=== PATIENT | male | born 1985 | race Caucasian/White ===

== ENCOUNTER 2018-06-20 07:46 | Observation (INO) ==
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
[2018-06-20 08:31] LABS: Basophils % 0.3 %; Hematocrit 38.9 % (37.5-50.1); Immature Granulocytes % 0.2 % (0-4); Lymphocytes # 2.1 K/mcL (0.6-4.6); Lymphocytes % 22.7 %; Mean Corpuscular HGB Conc 33.4 g/dL (31.6-35.5); Mean Corpuscular Hemoglobin 30.3 pg (28.0-33.3); Mean Corpuscular Volume 90.7 fL (83.0-100.0); Mean Platelet Volume 9.4 fL (9.4-12.4); Monocytes # 0.9 K/mcL (0.0-1.3); Monocytes % 9.2 %; Neutrophils # 6.3 K/mcL (1.6-8.9); Platelet Count 243 K/mcL (140-400); Red Blood Count 4.29 M/mcL (4.19-5.50); Red Cell Distribution Width 13.5 % (11.5-14.5); Segmented Neutrophils % 67.6 %
[2018-06-20 08:37] LABS: Bilirubin,Urine Moderate (Negative); Blood,Urine Negative (Negative); Clarity,Urine Clear (Clear); Color,Urine Dark Yellow (Yellow); Glucose,Urine (UA) Normal (Normal); Ketones,Urine 15 mg/dL (Negative); Leukocyte Esterase,Urine Negative (Negative); Nitrite,Urine Negative (Negative); Protein,Urine 30 mg/dL (Neg-Trace); Urobilinogen,Urine Normal (Normal)
[2018-06-20 08:39] LABS: Bacteria,Urine None Seen per hpf (None-Few); Squamous Epithelial Cell,Urine Many per lpf (None-Few)
[2018-06-20 08:40] LABS: Acetaminophen < 10 mcg/mL (10-20); BUN/Creatinine Ratio 23 (6-26); Blood Urea Nitrogen 44 mg/dL (6-20); Calcium 9.7 mg/dL (8.6-10.3); Carbon Dioxide 20 mEq/L (23-29); Chloride 102 mEq/L (98-107); Ethanol < 10 mg/dL (Less than 10); Glucose 77 mg/dL (70-105); Osmolality,Calculated 302 (280-300); Potassium 3.6 mEq/L (3.5-5.1); Salicylate < 2.5 mg/dL (15.0-30.0); Sodium 141 mEq/L (136-145); eGFR For Non-African Americans 41 (> 60)
[2018-06-20 08:56] LABS: Hyaline Casts,Urine Moderate per lpf (None-Few)
[2018-06-20] MEDS ORDERED: 0.9 % Sodium Chloride 1,000 ML ONE (08:58)
[2018-06-20 09:16] LABS: Amphetamine Screen,Urine Positive ng/mL (Cutoff=1000); Barbiturate Screen,Urine Negative ng/mL (Cutoff=200); Benzodiazepines Screen,Urine Positive ng/mL (Cutoff=200); Cannabinoid Screen,Urine Negative ng/mL (Cutoff = 50); Cocaine Screen,Urine Negative ng/mL (Cutoff= 300); Opiate Screen,Urine Negative ng/mL (Cutoff=300); Phencyclidine Screen,Urine Negative ng/mL (Cutoff=25)
[2018-06-20] MEDS: 0.9 % Sodium Chloride 1,000 ML IVC SCH ×2 (09:16→13:52)
[2018-06-20 09:25] LABS: Creatine Kinase 1730 Units/L (30-223)
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
[2018-06-20] MEDS ORDERED: 0.9 % Sodium Chloride 1,000 ML IVC ONE (09:43)
[2018-06-20] MEDS ORDERED: Acetaminophen 325 MG TABLET PO PRN (09:55)
[2018-06-20] MEDS ORDERED: Naloxone 0.4 MG/ML INJ IVP PRN (09:55)
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
[2018-06-20] MEDS ORDERED: hydrOXYzine pamoate 25 MG CAPSULE PO PRN (09:56)
[2018-06-20] MEDS ORDERED: Ringers Solution, Lactated 1,000 ML IVC SCH (10:00)
[2018-06-20 10:32] VITALS: BP 109/75
[2018-06-20] MEDS: Gabapentin 300 MG CAPSULE PO SCH ×2 (11:28→12:31)
[2018-06-20] MEDS: Divalproex (12 HR) 500 MG TABLET PO SCH ×2 (11:29→12:31)
[2018-06-20] MEDS ORDERED: Haloperidol Lactate 5 MG/ML VIAL ONE (11:42)
[2018-06-20] MEDS ORDERED: Ziprasidone injection 20 MG/ML VIAL IM ONE (11:47)
[2018-06-20] MEDS ORDERED: chlorproMAZINE 25 MG TABLET PO SCH (15:00)
--- NOTE | 2018-06-20 15:45 | Event Note ---
Date of Encounter: 06/20/18 Time of Encounter: 14:10 Patient left the hospital AMA after psychiatry cleared him and lifted the pink slip. He understands his condition and risks of not receiving appropriate treatment and has signed the necessary paperwork.
[2018-06-20] MEDS ORDERED: Mirtazapine 15 MG TABLET PO SCH (21:00)
[2018-06-20] MEDS ORDERED: traZODone 50 MG TABLET PO SCH (21:00)
[2018-06-20] MEDS ORDERED: BUPRENORPHINE HCL SL SCH (21:00)
[2018-06-20] MEDS ORDERED: NALOXONE HCL SL SCH (21:00)
[2018-06-20] MEDS ORDERED: Divalproex (12 HR) 500 MG TABLET PO SCH (21:00)
[2018-06-21] MEDS ORDERED: Polyethylene Glycol 3350 255 GM POWDER PO SCH (09:00)
[2018-06-21] MEDS ORDERED: Cholecalciferol (D-3) 1,000 UNIT TABLET PO SCH (09:00)
[2018-06-21] MEDS ORDERED: Loratadine 10 MG TABLET PO SCH (09:00)
== END 2018-06-20 14:16 | disposition left against medical advice (07) ==
LOC: EMEROOARM 07:46 → 2ANU 09:48 → INTOOBSV 09:48 → 2ANU 10:53
PROVIDERS: ADMIT Internal Medicine; ATTEND Internal Medicine

== ENCOUNTER 2022-06-03 19:41 | Observation (INO) ==
[2022-06-03 20:55] LABS: Basophils # 0.1 K/mcL (0.0-0.2); Basophils % 0.4 %; Eosinophils % 0.3 %; Hematocrit 46.7 % (37.5-50.1); Hemoglobin 15.3 g/dL (12.9-16.9); Immature Granulocytes % 0.3 % (0-4); Lymphocytes # 3.1 K/mcL (0.6-4.6); Lymphocytes % 25.9 %; Mean Corpuscular HGB Conc 32.8 g/dL (31.6-35.5); Mean Corpuscular Hemoglobin 29.1 pg (28.0-33.3); Mean Corpuscular Volume 88.8 fL (83.0-100.0); Mean Platelet Volume 10.1 fL (9.4-12.4); Monocytes % 8.5 %; Neutrophils # 7.7 K/mcL (1.6-8.9); Platelet Count 237 K/mcL (140-400); Red Blood Count 5.26 M/mcL (4.19-5.50); Segmented Neutrophils % 64.6 %; White Blood Count 11.9 K/mcL (4.3-11.1)
[2022-06-03 21:02] LABS: Prothrombin Time 11.5 Seconds (9.4-12.1)
[2022-06-03 21:04] LABS: Activated Partial Thrombo Time 32.3 Seconds (26.0-36.0)
[2022-06-03 21:11] LABS: Acetaminophen < 10 mcg/mL (10-20); Alanine Aminotransferase 21 Units/L (7-52); Albumin 4.7 g/dL (3.5-5.7); Albumin/Globulin Ratio 1.7 (1.1-2.2); Alkaline Phosphatase 58 Units/L (34-104); Aspartate Amino Transferase 23 Units/L (13-39); BUN/Creatinine Ratio 11 (6-26); Bilirubin,Direct 0.1 mg/dL (0.0-0.2); Bilirubin,Indirect 0.5 mg/dL (0.0-1.0); Bilirubin,Total 0.6 mg/dL (0.3-1.0); Blood Urea Nitrogen 13 mg/dL (6-20); Calcium 9.4 mg/dL (8.6-10.3); Carbon Dioxide 25 mEq/L (23-29); Chloride 109 mEq/L (98-107); Ethanol < 10 mg/dL (Less than 10); Globulin 2.7 g/dL (2.4-3.5); Glucose 116 mg/dL (70-105); Osmolality,Calculated 299 (280-300); Potassium 2.9 mEq/L (3.5-5.1); Salicylate < 2.5 mg/dL (15.0-30.0); Sodium 144 mEq/L (136-145); Total Protein 7.4 g/dL (6.4-8.9); Troponin I < 0.03 ng/mL (< 0.04); eGFR For African Americans > 60 (> 60); eGFR For Non-African Americans > 60 (> 60)
[2022-06-03] MEDS ORDERED: Potassium Effervescent 25 MEQ TABLET.EFF PO ONE (21:22)
[2022-06-03] MEDS ORDERED: *HR* LORazepam 2 MG/ML VIAL IVP ONE (21:25)
[2022-06-03 22:06] LABS: Bacteria,Urine Few per hpf (None-Few); Bilirubin,Urine Negative (Negative); Blood,Urine Negative (Negative); Clarity,Urine Clear (Clear); Color,Urine Yellow (Yellow); Glucose,Urine (UA) Normal (Normal); Ketones,Urine Trace mg/dL (Negative); Leukocyte Esterase,Urine Negative (Negative); Mucus,Urine Few per lpf (None-Few); Nitrite,Urine Negative (Negative); Protein,Urine 30 mg/dL (Neg-Trace); RBC,Urine 0-3 per hpf (0-3); Specific Gravity,Urine 1.026 (1.010-1.025); Squamous Epithelial Cell,Urine Few per hpf (None-Few); Urobilinogen,Urine Normal (Normal); WBC,Urine 0-3 per hpf (0-3)
[2022-06-03 22:09] LABS: Magnesium 1.8 mg/dL (1.6-2.6)
[2022-06-03 22:17] LABS: Amphetamine Screen,Urine Negative ng/mL (Cutoff=1000); Barbiturate Screen,Urine Negative ng/mL (Cutoff=200); Benzodiazepines Screen,Urine Positive ng/mL (Cutoff=200); Cannabinoid Screen,Urine Negative ng/mL (Cutoff = 50); Cocaine Screen,Urine Negative ng/mL (Cutoff= 300); Opiate Screen,Urine Negative ng/mL (Cutoff=300); Phencyclidine Screen,Urine Negative ng/mL (Cutoff=25)
[2022-06-03 22:46] LABS: Influenza A PCR Negative (Negative); Influenza B PCR Negative (Negative); Resp. Syncytial Virus PCR Negative (Negative)
[2022-06-03 22:48] LABS: SARS-CoV-2 by PCR (In House) Negative (Negative)
[2022-06-03] MEDS ORDERED: Acetaminophen 325 MG TABLET PO PRN (23:35)
[2022-06-03] MEDS ORDERED: Ondansetron 4 MG/2 ML VIAL IVP PRN (23:35)
[2022-06-03] MEDS ORDERED: Naloxone 0.4 MG/ML INJ IVP PRN (23:35)
[2022-06-03] MEDS ORDERED: Melatonin 3 MG TABLET PO PRN (23:35)
[2022-06-03 23:43] VITALS: BP 104/66; PULSE 56; TEMP 98; O2SAT 100
[2022-06-04] MEDS ORDERED: *HR* LORazepam 2 MG/ML VIAL ONE (00:42)
[2022-06-04] MEDS ORDERED: *HR* LORazepam 2 MG/ML VIAL IM ONE (01:15)
[2022-06-04 02:05] LABS: Valproate 10 mcg/mL (50-100)
[2022-06-04] MEDS ORDERED: *HR* LORazepam 2 MG/ML VIAL IM STA (03:27)
[2022-06-04] MEDS ORDERED: Nicotine 21 MG PATCH.TD24 TD PRN (06:18)
[2022-06-04] MEDS ORDERED: Haloperidol Lactate 5 MG/ML VIAL IVP PRN (07:53)
[2022-06-04] MEDS ORDERED: clonazePAM 0.5 MG TABLET PO SCH (11:30)
[2022-06-04] MEDS ORDERED: Haloperidol Lactate 5 MG/ML VIAL IM PRN (12:44)
[2022-06-04] MEDS ORDERED: Gabapentin 300 MG CAPSULE PO SCH (15:00)
[2022-06-04] MEDS ORDERED: levETIRAcetam 250 MG TABLET PO SCH (18:00)
[2022-06-04] MEDS ORDERED: ARIPiprazole 10 MG TABLET PO SCH (19:00)
[2022-06-04] MEDS ORDERED: haloperidoL 5 MG TABLET PO SCH (21:00)
[2022-06-05] MEDS ORDERED: risperiDONE 1 MG TABLET PO SCH (09:00)
[2022-06-05] MEDS ORDERED: CARIPRAZINE HCL 3 MG PO SCH (09:00)
== END 2022-06-04 13:56 | disposition left against medical advice (07) ==
LOC: 2ANU 19:41 → EMEROOARM 19:41 → 2ANU 23:17
PROVIDERS: ADMIT Internal Medicine; ATTEND Internal Medicine